=== PATIENT | female | born 1970 | race Caucasian/White ===

== ENCOUNTER 2021-06-30 00:52 | Emergency (ER) | payer BC, MEDICAID, OTHER ==
[2021-06-30 03:24] VITALS: BP 144/95; PULSE 90
[2021-06-30] MEDS ORDERED: Ondansetron 4 MG Tab.DIS PO ONE ×2 (03:41→04:12)
--- NOTE | 2021-06-30 04:19 | EDM.PDOC ---
ED HPI GENERAL MEDICAL PROBLEM - General Chief Complaint: General Stated Complaint: FAINTED Time Seen by Provider: 06/30/21 03:56 Source of Information: Reports: Patient History Limitations: Reports: No Limitations - History of Present Illness INITIAL COMMENTS - FREE TEXT/NARRATIVE: A PB MATSON was called to OB earlier tonight. I responded, finding the patient face down in a delivery room bathroom, with the patient retching on the floor. I was told that she was the mother of a patient, and that she had felt lightheaded, gone into the bathroom, and vomited. I advised that if the patient wanted to be evaluated, that they put her in a wheelchair and bring her to the ED, which was done. The patient reports that her daughter had suffered a miscarriage, and that she felt lightheaded. She went to the bathroom, and she states that she did in fact suffer a syncopal episode, although denies any physical injury. She then felt nauseated and vomited. She was given 4 mg of Zofran ODT at triage, but states that she is still feeling somewhat nauseated. The triage note also indicates that she was initially hyperventilating, although that has ceased. At triage, the patient was found to be hemodynamically stable, afebrile, saturating 96% on room air. She is tearful, although in no acute distress. The patient reports that she had been experiencing a fever on and off for 3 days, with a T-max of 101.4 degrees on , 06/27/2021. She had developed nausea, vomiting, a loss of taste and smell, and a headache on 06/21/2021. She had developed a cough productive of dark green sputum, and reported that it hurts for her to take a deep breath. She denied experiencing chest pain or palpitations. No constipation, diarrhea, or urinary symptoms. She has been taking Tylenol with codeine at bedtime to address her symptoms. She then stated that she had tested positive for the SARS-CoV-2 virus on 06/24/2021, and acknowledged that she was still supposed to be in isolation. Additionally, the patient's daughter, who had suffered a miscarriage, also has COVID-19. The patient's PCP is Alvina Roque NP, in [place]. She has not received a COVID vaccination. 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) ons Home Meds: Home Meds DULoxetine [Cymbalta] 60 mg PO DAILY 01/23/17 [History] Gabapentin [Neurontin] 300 mg PO TID 01/23/17 [History] buPROPion [Wellbutrin] 75 mg PO DAILY 01/23/17 [History] Past Medical History Respiratory History: Reports: Sleep Apnea (nightly CPAP 10) Neurological History: Reports: Neuropathy, Peripheral (BLE) Psychiatric History: Reports: Bipolar Endocrine/Metabolic History: Reports: Obesity/BMI 30+ - Infectious Disease History Infectious Disease History: Reports: Novel Coronavirus - Past Surgical History HEENT Surgical History: Reports: Oral Surgery (dental extraction) Female Surgical History: Reports: Hysterectomy (partial), Tubal Ligation Social & Family History - Tobacco Use Tobacco Use Status *Q: Former Tobacco User Tobacco Use Within Last Twelve Months: Vaping (Nicotine) Years of Tobacco use: 34 Packs/Tins Daily: 1 Month/Year Tobacco Last Used: Quit Dec 2020 Tobacco Use Comment: Started smoking 1986 - Alcohol Use Alcohol Use History: No - Recreational Drug Use Recreational Drug Use: Yes Drug Use in Last 12 Months: Yes Recreational Drug Type: Reports: Marijuana/Hashish (smokes daily) - Living Situation & Occupation Living situation: Reports: , with Spouse, with Family (3 kids) Occupation: Unemployed ED ROS GENERAL - Review of Systems Review Of Systems: Comprehensive ROS is negative, except as noted in HPI. - Physical Exam Exam: See Below Exam Limited By: No Limitations General Appearance: Alert, WD/WN, No Apparent Distress Eye Exam: Bilateral Eye: EOMI, Normal Inspection Ears: Normal External Exam, Hearing Grossly Normal Nose: Normal Inspection Throat/Mouth: Normal Inspection, Normal Lips, Normal Voice, No Airway Compromise Head Exam: Atraumatic, Normocephalic Neck: Normal Inspection, Full Range of Motion Respiratory/Chest: No Respiratory Distress, Lungs Clear, Normal Breath Sounds, No Accessory Muscle Use Cardiovascular: Normal Peripheral Pulses, Regular Rate, Rhythm, No Gallop, No JVD, No Murmur, No Rub GI/Abdominal: Normal Bowel Sounds, Soft, No Organomegaly, No Distention, No Abnormal Bruit, No Mass, Tender (Generalized, non-focal) Neuro Exam (Abbreviated): Alert, Oriented, CN II-XII Intact, Normal Cognition, No Motor/Sensory Deficits Back Exam: Normal Inspection, Full Range of Motion, NT Extremities: Normal Inspection, Normal Range of Motion, Normal Capillary Refill Psychiatric: Depressed Mood Skin Exam: Warm, Intact, Normal Color, No Rash, Diaphoretic (mild) Course - Vital Signs Last Recorded V/S: Last Vital Signs Temp 35.2 C L 06/30/21 01:07 Pulse 90 06/30/21 03:24 Resp 16 06/30/21 03:24 BP 144/95 H 06/30/21 03:24 Pulse Ox 97 06/30/21 03:24 - Orders/Labs/Meds Meds: Medications Discontinued Medications Generic Name Dose Route Start Last Admin Trade Name Carlito PRN Reason Stop Dose Admin Ondansetron HCl 4 mg 06/30/21 03:41 06/30/21 03:45 Ondansetron 4 Mg Tab.Dis PO 06/30/21 03:42 4 mg ONETIME ONE Administration Ondansetron HCl 4 mg 06/30/21 04:12 06/30/21 04:15 Ondansetron 4 Mg Tab.Dis PO 06/30/21 04:13 Not Given ONETIME ONE - Re-Assessments/Exams Free Text/Narrative Re-Assessment/Exam: 06/30/21 04:12 The patient was given 4 mg of Zofran ODT at triage. She states that she is still feeling nauseated, so I have ordered a second dose. She was offered a work-up for her abdominal tenderness and other symptoms, but declined. She will be discharged home with an [facility] prescription for Zofran ODT. As above, the patient tested positive for the SARS-CoV-2 virus on 06/24/2021, and, by her own admission, is still under isolation, but nevertheless came to the hospital for the delivery of her daughter, and did not tell anyone. OB has since been notified of the patient's condition. The patient needs to remain under isolation until she tests negative, which should be on 07/04/2021. Departure - Departure Time of Disposition: 04:15 Disposition: Home, Self-Care 01 Condition: Good Clinical Impression: Syncope, Nausea & vomiting, COVID-19 - Discharge Information *PRESCRIPTION DRUG MONITORING PROGRAM REVIEWED*: Not Applicable *COPY OF PRESCRIPTION DRUG MONITORING REPORT IN PATIENT KELLY: Not Applicable Instructions: 10 Things You Can Do to Manage Your COVID-19 Symptoms at Home - [facility] (04/12/2021), Syncope, [id number], COVID-19: What to Do If You Are Sick- [facility] (12/12/2020) Referrals: Cielo Roque NP [Ordering Only Provider] - Forms: ED Department Discharge Additional Instructions: You were seen in the emergency room after passing out, then vomiting after receiving upsetting news. A work-up, including blood work and CT scans was offered, but declined. You were treated with 2 doses of the antinausea medicine Zofran ODT in the ER. A prescription for Zofran ODT has been provided to you via [facility]. You may dissolve 1 tablet of Zofran ODT on your tongue up to every 8 hours, as needed for nausea/vomiting. Stay adequately hydrated, and we recommend that you eat a bland diet, such as rice, oatmeal, or bananas. Chicken noodle soup with saltine crackers is an excellent choice. It is imperative that you strictly isolate until 10 days after you tested positive for the SARS-CoV-2 virus = , 07/04/2021. At that time, you should get retested. If you are still positive, do not rejoin society until you test negative. If any other problems, please do not hesitate to return to the ER. Sepsis Event Note (ED) - Evaluation Sepsis Screening Result: No Definite Risk
== END 2021-06-30 04:25 | disposition home or self-care (01) ==
LOC: JD.ED 00:52
DX: U07.1 COVID-19 (principal); E66.9 Obesity, unspecified; Z88.5 Allergy status to narcotic agent; Z88.2 Allergy status to sulfonamides; Z79.899 Other long term (current) drug therapy; Z90.710 Acquired absence of both cervix and uterus; Z87.891 Personal history of nicotine dependence; Z68.42 Body mass index [BMI] 45.0-49.9, adult
CPT/HCPCS: 99283; A9270